=== PATIENT | male | born 1985 | race Caucasian/White ===

== ENCOUNTER 2018-07-22 03:21 | Emergency (ER) | payer MEDICAID, OTHER ==
[2018-07-22] MEDS ORDERED: Tetracaine 0.5% Ophth Soln 15 mL Soln EACH EYE ONE (03:57)
[2018-07-22] MEDS ORDERED: Fluorescein Sodium 1 mg Ophth Strip EACH EYE ONE (03:57)
[2018-07-22] MEDS ORDERED: Fluorescein Sodium 1 mg Ophth Strip ONE ×2 (04:04→04:29)
[2018-07-22] MEDS ORDERED: TETRACAINE HCL 0.5% OPHTH SOLN 4ML BOTTLE ONE (04:04)
--- NOTE | 2018-07-22 04:21 | ED Physician Chart ---
ED Chief Complaint/HPI - Patient Information Date Seen:: 07/22/18 Time Seen:: 03:30 Chief Complaint:: bilateral eye pain History of Present Illness:: bilateral eye pain. eyelashes were stuck together. nobody else has eye infection. 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 Allergies:: Allergies Allergy/AdvReac Type Severity Reaction Status Date / Time shrimp Allergy Verified 07/22/18 03:36 Vitals:: Vital Signs - 8 hr 07/22/18 03:30 Temp 98.7 F HR 77 RR 20 BP 135/85 O2 Sat % 100 Historian:: Patient Review:: Nurse's Note Reviewed ED Review of Systems - Review of Systems General/Constitutional: No fever, No chills, No weight loss, No weakness, No diaphoresis, No edema, No loss of appetite Skin: No skin lesions, No rash, No bruising Head: No headache, No light-headedness Eyes: No loss of vision, Pain, No diplopia, Other (slight discharge; photophobia ) ENT: No earache, No nasal drainage, No sore throat, No tinnitus Neck: No neck pain, No swelling, No thyromegaly, No stiffness, No mass noted Cardio Vascular: No chest pain, No palpitations, No PND, No orthopnea, No edema Pulmonary: No SOB, No cough, No sputum, No wheezing GI: No nausea, No vomiting, No diarrhea, No pain, No melena, No hematochezia, No constipation, No hematemesis G/U: No dysuria, No frequency, No hematuria Musculoskeletal: No bone or joint pain, No back pain, No muscle pain Endocrine: No polyuria, No polydipsia Psychiatric: No prior psych history, No depression, No anxiety, No suicidal ideation Hematopoietic: No bruising, No lymphadenopathy Allergic/Immuno: No urticaria, No angioedema Neurological: No syncope, No focal symptoms, No weakness, No paresthesia, No headache, No seizure, No dizziness, No confusion, No vertigo ED Past Medical History - Past Medical History Obtainable: Yes Past Medical History: No significant medical hx Family Medical History - Family Member Mother History Unknown: Yes ED Physical Exam - Physical Examination General/Constitutional: Awake, Well-developed, well-nourished, Alert, No distress, GCS 15, Non-toxic appearing, Ambulatory Head: Atraumatic Other Eyes comments:: slightly injected sclerae. LIDS EVERTED: area under right upper lid is slightly inflamed. No foreign bodies underneath any of the eyelids. FLUORESCIN TEST: positive small speck at 9 oclock on the left cornea nearest the nose. Skin: Nl inspection, No rash, No skin lesions, No ecchymosis, Well hydrated, No lymphadenopathy ENMT: External ears, nose nl ED Septic Shock - . Is Septic Shock (SBP<90, OR Lactate>4 mmol\L) present?: No - <6hrs of presentation: Vital Signs: Vital Signs - 8 hr 07/22/18 03:30 Temp 98.7 F HR 77 RR 20 BP 135/85 O2 Sat % 100 ED Reassessment (Disposition) - Reassessment Reassessment Condition:: Improved - Diagnosis Diagnosis:: Left corneal abrasion at 9 o'clock. Bacterial conjunctivitis Injected sclerae. - Aftercare/Follow up Instructions Aftercare/Follow-Up Instructions:: Refer to Discharge Instructions Notes:: return to work on Tuesday afternoon only after clearance by an eye doctor. TO SEE AN EYE DOCTOR THIS TUESDAY. Medication Prescribed:: Ciprofloxacin eye drops - Patient Disposition Discharge/Transfer:: Home Condition at Disposition:: Stable, Improved
[2018-07-22] MEDS ORDERED: Dacriose Ophth Soln 120 mL Bottle EACH EYE ONE (04:43)
[2018-07-22] MEDS ORDERED: Dacriose Ophth Soln 120 mL Bottle ONE (04:45)
== END 2018-07-22 05:00 | disposition home or self-care (01) ==
LOC: ER 03:21
DX: S05.02XA Injury of conjunctiva and corneal abrasion without foreign body, left eye, initial encounter (principal); H10.9 Unspecified conjunctivitis; H15.9 Unspecified disorder of sclera; Z91.013 Allergy to seafood; X58.XXXA Exposure to other specified factors, initial encounter; Y93.89 Activity, other specified; Y92.89 Other specified places as the place of occurrence of the external cause; Y99.8 Other external cause status
CPT/HCPCS: Z7502